=== PATIENT | male | born 1950 | race Caucasian/White ===

== ENCOUNTER → 2019-09-09 | Outpatient (CLI) | payer MEDICARE | LOC: M.ULTRA 07:29 | DX: R93.5 Abnormal findings on diagnostic imaging of other abdominal regions, including retroperitoneum (principal); Z72.0 Tobacco use ==

== ENCOUNTER 2019-12-22 09:48 | Emergency (ER) | payer MEDICARE ==
[~2019-12-22] VITALS: Ht 172.7 cm; Wt 72.6 kg
[2019-12-22] MEDS ORDERED: CARVEDILOL6.25 M1 PO (09:57)
[2019-12-22] MEDS ORDERED: LOSARTAN POTASS50 MG PO (09:57)
[2019-12-22 10:25] LABS: HEMOGLOBIN 17.2 gm/dL (14.0-18.0); MCH 31.2 pg (26.0-34.0); MCHC 34.4 g/dL (28.0-37.0); MCV 90.8 fL (80.0-100.0); MPV 8.3 fl. (7.2-11.1); RBC 5.51 mil/uL (4.50-6.00); RDW-CV 13.9 % (10.5-14.5)
[2019-12-22 10:35] LABS: CALCIUM 8.3 mg/dL (8.5-10.1); CREATININE 0.9 mg/dL (0.6-1.3); POTASSIUM 4.4 mmol/L (3.5-5.1)
[2019-12-22] MEDS ORDERED: COREG12.5 MG PO (11:07)
[2019-12-22] MEDS ORDERED: CARVEDILOL12.5 MG PO (11:12)
[2019-12-22 11:36] VITALS: BP 153/94
== END 2019-12-22 11:36 | disposition home or self-care (01) ==
LOC: M.ERS 09:48
PROVIDERS: Emergency Medicine Emergency Medical Services
DX: I10 Essential (primary) hypertension (principal); Z91.041 Radiographic dye allergy status; Z88.0 Allergy status to penicillin; Z88.2 Allergy status to sulfonamides

== ENCOUNTER 2020-01-27 00:08 | Emergency (ER) | payer MEDICARE ==
[~2020-01-27] VITALS: Ht 170.2 cm; Wt 72.6 kg
[~2020-01-27 00:08] MED LIST: CARVEDILOL12.5 MG PO; CARVEDILOL6.25 M1 PO; COREG12.5 MG PO; LOSARTAN POTASS50 MG PO
[2020-01-27] MEDS ORDERED: ESCITALOPRA5 MG/5 ML PO (00:30)
[2020-01-27 00:42] LABS: HEMATOCRIT 49.4 % (42.0-52.0); HEMOGLOBIN 17.4 gm/dL (14.0-18.0); MCH 31.3 pg (26.0-34.0); MCHC 35.1 g/dL (28.0-37.0); MCV 89.1 fL (80.0-100.0); MPV 8.5 fl. (7.2-11.1); NUCLEATED RBCS 0 /100WBC; PLATELET COUNT* 245 thou/uL (150-400); RBC 5.55 mil/uL (4.50-6.00); RDW-CV 13.9 % (10.5-14.5); WBC 11.5 thou/uL (4.0-11.0)
[2020-01-27 00:49] LABS: CALCIUM 8.3 mg/dL (8.5-10.1); CREATININE 0.9 mg/dL (0.6-1.3); POTASSIUM 3.4 mmol/L (3.5-5.1)
[2020-01-27 00:54] LABS: APTT 27.1 Seconds (25.0-31.3); INR 1.1; PROTIME 10.8 Seconds (9.20-11.50)
[2020-01-27] MEDS ORDERED: XANAX 0.5 MG0.5 MG PO (01:04)
[2020-01-27 01:05] LABS: ALBUMIN 3.8 g/dL (3.4-5.0); MAGNESIUM 1.9 mg/dL (1.8-2.4); TOTAL BILIRUBIN 0.8 mg/dL (<0.1-1.0); TOTAL PROTEIN 7.7 g/dL (6.4-8.2)
[2020-01-27 01:11] VITALS: BP 118/89
[2020-01-27 02:28] LABS: ABSOLUTE BASOPHILS 0.1 thou/uL (0.0-0.2); ABSOLUTE EOSINOPHILS 0.3 thou/uL (0.0-0.7); ABSOLUTE LYMPHOCYTES 2.9 thou/uL (0.8-5.3); ABSOLUTE MONOCYTES 0.7 thou/uL (0.0-1.2); ABSOLUTE NEUTROPHILS 7.5 thou/uL (1.6-8.1)
[2020-01-27 02:29] LABS: PLATELET ESTIMATE ADEQUATE
--- NOTE | 2020-01-27 11:52 | EKG ---
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
== END 2020-01-27 01:30 | disposition home or self-care (01) ==
LOC: M.ERS 00:08
PROVIDERS: Family Medicine
DX: F41.0 Panic disorder [episodic paroxysmal anxiety] (principal); I10 Essential (primary) hypertension

== ENCOUNTER 2020-03-11 15:17 | Emergency (ER) | payer MEDICARE ==
[~2020-03-11] VITALS: Ht 170.2 cm; Wt 72.6 kg
[~2020-03-11 15:17] MED LIST changes: +ESCITALOPRA5 MG/5 ML PO; +XANAX 0.5 MG0.5 MG PO
[2020-03-11 15:44] LABS: ABSOLUTE BASOPHILS 0.1 thou/uL (0.0-0.2); ABSOLUTE EOSINOPHILS 0.2 thou/uL (0.0-0.7); ABSOLUTE LYMPHOCYTES 2.3 thou/uL (0.8-5.3); ABSOLUTE MONOCYTES 0.9 thou/uL (0.0-1.2); ABSOLUTE NEUTROPHILS 7.6 thou/uL (1.6-8.1); BASOPHILS 1.2 %; EOSINOPHILS 1.8 %; HEMATOCRIT 50.5 % (42.0-52.0); HEMOGLOBIN 17.4 gm/dL (14.0-18.0); LYMPHOCYTES 20.4 %; MCH 31.4 pg (26.0-34.0); MCHC 34.4 g/dL (28.0-37.0); MCV 91.3 fL (80.0-100.0); MONOCYTES 8.3 %; MPV 9.1 fl. (7.2-11.1); NUCLEATED RBCS 0 /100WBC; PLATELET COUNT* 210 thou/uL (150-400); POLYS 68.3 %; RBC 5.53 mil/uL (4.50-6.00); RDW-CV 14.2 % (10.5-14.5); WBC 11.1 thou/uL (4.0-11.0)
[2020-03-11 15:55] LABS: CALCIUM 8.6 mg/dL (8.5-10.1); INR 1.1; POTASSIUM 3.6 mmol/L (3.5-5.1); PROTIME 11.1 Seconds (9.20-11.50)
[2020-03-11 16:09] LABS: ALBUMIN 4.3 g/dL (3.4-5.0); CK-MB MASS 3.1 ng/mL (<0.5-3.6); MAGNESIUM 2.1 mg/dL (1.8-2.4); TOTAL BILIRUBIN 0.4 mg/dL (<0.1-1.0); TOTAL PROTEIN 8.8 g/dL (6.4-8.2)
[2020-03-11] MEDS ORDERED: ATIVAN1 M1 PO (18:11)
[2020-03-11 18:20] VITALS: BP 150/85
--- NOTE | 2020-03-12 16:51 | EKG ---
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[place] [facility] 1950 Requested By: Quan Cunningham Order Number: [id number] MD: John Fowler Measurements Intervals [place] Rate: 79 P: 60 VT: 143 QRS: 32 QRSD: 81 T: 50 QT: 366 QTc: 420 Interpretive Statements Sinus rhythm Possible anteroseptal infarct, old Compared to ECG 01/27/2020 00:16:50 Myocardial infarct finding now present Electronically Signed On 03-12-2020 16:50:18 CDT by John Fowler [email or web address] <ELECTRONICALLY SIGNED> By: John Fowler MD, [facility] 03/12/20 1650 1520 1520 John Fowler MD, [facility] /EPI
== END 2020-03-11 18:20 | disposition home or self-care (01) ==
LOC: M.ERS 15:17
PROVIDERS: Emergency Medicine Emergency Medical Services
DX: R42 Dizziness and giddiness (principal); H61.20 Impacted cerumen, unspecified ear; I10 Essential (primary) hypertension; F17.210 Nicotine dependence, cigarettes, uncomplicated; Z88.2 Allergy status to sulfonamides; Z88.0 Allergy status to penicillin; Z88.8 Allergy status to other drugs, medicaments and biological substances

== ENCOUNTER 2020-04-06 16:29 | Observation (INO) | payer MEDICARE ==
[2020-04-06] VITALS (11 sets, daily range): BP systolic 122–198; BP diastolic 81–119
[~2020-04-06] VITALS: Ht 172.7 cm; Wt 67.4 kg
[~2020-04-06 16:29] MED LIST changes: +ATIVAN1 M1 PO
[2020-04-06] MEDS ORDERED: LISINOPRIL20 MG PO (16:37)
[2020-04-06 16:46] LABS: ABSOLUTE BASOPHILS 0.1 thou/uL (0.0-0.2); ABSOLUTE EOSINOPHILS 0.2 thou/uL (0.0-0.7); ABSOLUTE LYMPHOCYTES 2.4 thou/uL (0.8-5.3); ABSOLUTE MONOCYTES 0.5 thou/uL (0.0-1.2); ABSOLUTE NEUTROPHILS 5.3 thou/uL (1.6-8.1); BASOPHILS 1.2 %; EOSINOPHILS 2.4 %; HEMATOCRIT 48.6 % (42.0-52.0); LYMPHOCYTES 28.4 %; MCH 32.5 pg (26.0-34.0); MCV 92.9 fL (80.0-100.0); MONOCYTES 6.1 %; MPV 8.8 fl. (7.2-11.1); NUCLEATED RBCS 0 /100WBC; PLATELET COUNT* 187 thou/uL (150-400); POLYS 61.9 %; RBC 5.23 mil/uL (4.50-6.00); RDW-CV 14.1 % (10.5-14.5); WBC 8.5 thou/uL (4.0-11.0)
[2020-04-06 16:56] LABS: CALCIUM 8.8 mg/dL (8.5-10.1); POTASSIUM 3.6 mmol/L (3.5-5.1)
[2020-04-06 16:59] LABS: APTT 26.4 Seconds (25.0-31.3); INR 1.1; PROTIME 11.4 Seconds (9.20-11.50)
[2020-04-06 17:09] LABS: ALBUMIN 3.9 g/dL (3.4-5.0); CK-MB MASS 2.2 ng/mL (<0.5-3.6); MAGNESIUM 2.1 mg/dL (1.8-2.4); TOTAL BILIRUBIN 0.8 mg/dL (<0.1-1.0); TOTAL PROTEIN 8.1 g/dL (6.4-8.2)
[2020-04-07 00:35] VITALS: BP 132/81
--- NOTE | 2020-04-07 01:43 | NUR ---
ASSUMED CARE OF PT AT 1900. PT IS ALERT AND ORIENTED. VSS. PERRLA. NO COMPLAINTS OF PAIN. PT WAS BEDREST TILL 2300. NO BLEEDING OR BRUISING IN GROIN SITE. PT IS IN SINUS RYTHM ON THE TELEMETRY. PT IS RESTING COMFORTABLY IN BED. RESPIRATIONS ARE EVEN AND NONLABORED. WILL CONTINUE TO MONITOR PT.
[2020-04-07 04:48] VITALS: BP 134/76
[2020-04-07 05:42] LABS: HEMATOCRIT 46.9 % (42.0-52.0); HEMOGLOBIN 16.1 gm/dL (14.0-18.0); MCH 32.1 pg (26.0-34.0); MCHC 34.4 g/dL (28.0-37.0); MCV 93.3 fL (80.0-100.0); MPV 10.1 fl. (7.2-11.1); RBC 5.02 mil/uL (4.50-6.00); RDW-CV 14.1 % (10.5-14.5); WBC 9.6 thou/uL (4.0-11.0)
[2020-04-07 06:00] LABS: CHOLESTEROL 137 mg/dL (<200); HDL CHOLESTEROL 45 mg/dL (>40); LDL CHOLESTEROL 85 mg/dL (<100); TRIGLYCERIDE 37 mg/dL (<150); VLDL 7 mg/dL (<40)
[2020-04-07 06:02] LABS: SERUM ASSESSMENT Clear
[2020-04-07 06:05] LABS: ALBUMIN 3.3 g/dL (3.4-5.0); CALCIUM 8.6 mg/dL (8.5-10.1); CREATININE 0.8 mg/dL (0.6-1.3); POTASSIUM 4.3 mmol/L (3.5-5.1); TOTAL BILIRUBIN 0.9 mg/dL (<0.1-1.0); TOTAL PROTEIN 6.7 g/dL (6.4-8.2)
[2020-04-07 08:30] VITALS: BP 161/82
[2020-04-07] MEDS ORDERED: COREG6.25 MG PO ×2 (09:36→12:48)
[2020-04-07] MEDS ORDERED: ASA81BEC PO (09:36)
[2020-04-07] MEDS ORDERED: EFFIENT10 MG PO ×2 (09:37→12:48)
--- NOTE | 2020-04-07 11:19 | EKG ---
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: DAVIN : 1950 Requested By: Flip Frausto Order Number: [id number] MD: Ramón Croft Measurements Intervals [place] Rate: 87 P: 76 NV: 166 QRS: 59 QRSD: 85 T: 49 QT: 345 QTc: 415 Interpretive Statements Sinus rhythm Probable left atrial enlargement Probable anteroseptal infarct, old Minimal ST depression, lateral leads Compared to ECG 03/11/2020 15:20:59 ST (T wave) deviation now present Myocardial infarct finding still present Electronically Signed On 04-07-2020 11:19:17 CDT by Ramón Croft [email or web address] <ELECTRONICALLY SIGNED> By: Ramón Croft MD, [facility] 04/07/20 1119 1632 1632 Ramón Croft MD, [facility] /EPI
--- NOTE | 2020-04-07 11:24 | EKG ---
[place] [address] ELECTROCARDIOGRAM REPORT Name: RADHAAlbertASHLEYMILDREDBERNA Diggs Room: [address]R.#: [id number] Admission: 04/06/20 Attend Phys: Patel Fernandes, Discharge: Date of : 50 Date of Service: 04/07/20 0823 Report #: [id number] THIS REPORT FOR: //name// [facility] Test Date: 2020-04-07 Test Time: 08:23:12 Pat Name: BERNA WATSON Department: Room: [facility] Gender: M Front Desk Monitor: : 1950 Requested By: Patel Fernandes Order Number: [id number] MD: Ramón Croft Measurements Intervals [place] Rate: 55 P: 48 TN: 155 QRS: 49 QRSD: 79 T: 54 QT: 420 QTc: 402 Interpretive Statements Sinus bradycardia Atrial premature complexes Probable septal infarct, old Compared to ECG 04/06/2020 16:32:50 Atrial premature complex(es) now present ST (T wave) deviation no longer present Myocardial infarct finding still present Electronically Signed On 04-07-2020 11:24:47 CDT by Ramón Croft [email or web address] <ELECTRONICALLY SIGNED> By: Ramón Croft MD, [facility] 04/07/20 1124 2 2 Ramón Croft MD, [facility] /EPI
[2020-04-07 12:25] VITALS: BP 161/82
[2020-04-07] MEDS ORDERED: LIPITOR 40 MG T40 M1 PO (12:48)
[2020-04-07] MEDS ORDERED: ASPIR 8181 MG PO (12:48)
[2020-04-07] MEDS ORDERED: NITROGLYCERIN0.4 MG SUBLING (12:56)
--- NOTE | 2020-04-08 11:17 | CARD ---
[address] [address] CARDIAC CATH REPORT Name: BERNA WATSON Room: [address] Sabrina Hernandez#: [id number] Admission: 04/06/20 Attend Phys: Patel Fernandes MD Discharge: 04/07/20 Date of : 50 Report #: [id number] THIS REPORT FOR: //name// cc: Francois Miles Adam J DO ~ APPROVED REPORT Study performed: 04/06/2020 16:56:25 Patient Details Patient Status: ED Room #: The patient is a 70 year-old male Event Personnel Francois Carrizales RTR Monitor, Kathleen Pedroza RN RN, Jasmin Pickering RN RN, Elza Torrez RTR Scrub, Patel Fernandes Order Dispatcher, John Fowler Steam Generating Powerplant Mechanic Procedures Performed Left Heart Cath w/or w/o Coronaries [id number] [facility] CELESTE Place w/wo Plasty Single RCA [id number] Hemostasis w/ Mynx Indication Unstable angina Risk Factors Family History, Hypercholesterolemia Admission/Lab Medications/Medications given during procedure Solumedrol IV 125 mg, Lidocaine Subcut 20 ml, Benadryl IV 50 mg, Angiomax IV 10.5 ml, Angiomax IV 4.75 ml per hr, Effient PO 60 mg Procedure Narrative The patient was brought urgently to the Cardiac Catheterization Laboratory and was prepped and draped in a sterile manner. The right femoral was infiltrated with 2% Lidocaine subcutaneous anesthesia. A [place] 6 FR sheath was inserted into the right femoral artery. Coronary angiography was performed using coronary diagnostic catheters. The right coronary system was accessed and visualized with a Diagnostic JR4 6Fr catheter. The left coronary system was accessed and visualized with a Diagnostic JL4 6Fr catheter. The left ventricle was accessed and visualized with a Diagnostic Pigtail Straight 6Fr catheter. Left ventricular/[place] [address] CARDIAC CATH REPORT Name: BERNA WATSON Room: [address]#: [id number] Admission: 04/06/20 Attend Phys: Patel Fernandes MD Discharge: 04/07/20 Date of : 50 Report #: [id number] catheter pullback. Pre-demployment femoral angiogram was performed . Closure device was deployed with a 6 Fr Mynx. The patient tolerated the procedure well and there were no complications associated with the procedure. There was no hematoma. Intraoperative Conscious Sedation Sedation start time: 1724 Case end Time: 1806 No sedation given Fluoro Time: 8.6 minutes Dose: DAP 45817 cGycm2 1271.70 mGy Contrast Type and Amount: Visipaque 240 ml Coronary Angiography The patient's coronary anatomy is right dominant. Diagnostic Cath Left Main 0% narrowing LAD 30% mid LAD narrowing Circumflex 0% narrowing Right Coronary Dominant vessel with 40% proximal and 75 - 80% mid right coronary artery stenosis Left Ventriculography The left ventricle is normal in size with normal contractility. The left ventricular ejection fraction is estimated to be 65%. Left ventricular wall motion abnormalities are not present. There is no mitral insufficiency. Hemodynamics The aortic pressure is 191/90 mmHg with a mean of 62 mmHg. The left ventricular pressure is 193/10 mmHg with a mean of mmHg. The left ventricular end diastolic pressure is 31 mmHg. There was no gradient across the aortic valve upon pullback. PCI Technique Lesion Patient was preloaded with Angiomax IV 10.5 ml. Percutaneous coronary intervention was performed on the mid right coronary artery. The lesion stenosis prior to intervention was 75-80% with DONNA 3 flow. A 6FR JCR 4 100CM Guide Catheter was used to engage the Right ostium. A BMW 190cm Interventional Guidewire was used to cross the lesion. BALLOON DILATION A Balloon catheter Trek RX 2.5 X 12 was inserted and inflated up to 12.00atm [place] 10[place]. [place] [address] CARDIAC CATH REPORT Name: BERNA WATSON Room: [address] Sabrina M.R.#: [id number] Admission: 04/06/20 Attend Phys: Patel Fernandes MD Discharge: 04/07/20 Date of : 50 Report #: [id number] STENT DEPLOYMENT A drug-eluting stent Junior RX Stent 2.32O55ph was inserted and inflated up to 12.00atm for 10seconds. Additional Inflation: 16.00atm for 11seconds. Additional Inflation: 18.00atm for 10seconds. Additional Inflation: 20 christina for 10 seconds. Final angiography reveals 0 % stenosis with DONNA 3 flow. Conclusion 1. Coronary artery disease characterized by the following: A 30% narrowing in the midportion of a prominent LAD system B dominant right coronary artery with 40% proximal and 75 - 80% mid vessel stenosis 2. Normal left ventricular systolic function, estimated ejection fraction being 65% 3. Moderately severe systemic systolic hypertension with significant elevation of left ventricular end systolic pressure at rest 4. Successful PCI with deployment of drug-eluting stent at the site of 75 - 80% mid right coronary stenosis with 0% residual narrowing and DONNA-3 flow to the distal vessel Recommendations Cardiac Risk Reduction Program Medications Administered Aspirin (any) Prasugrel Diagnostic Cath Approved by: Patel Fernandes MD Date/Time: 04/08/2020 11:15:38 <ELECTRONICALLY SIGNED> By: John Fowler MD, [facility] 04/08/20 1116 1116 1116John Fowler MD, FACC /INF
--- NOTE | 2020-04-09 08:41 | H ---
[place] [address] HISTORY AND PHYSICAL Name: BERNA WATSON Room: [address] Mary#: [id number] Admission: 04/06/20 Attend Phys: Patel Fernandes MD Discharge: 04/07/20 Date of : 50 Report #: [id number] THIS REPORT FOR: //name// cc: Francois Miles Adam J DO THIS REPORT FOR: //name// CC: Francois Lawson DATE OF SERVICE: 04/06/2020 INDICATION: Acute coronary syndrome. HISTORY OF PRESENT ILLNESS: The patient is a very pleasant 70-year-old gentleman with no prior cardiac history. He presented to the Emergency Room 2 weeks ago with some midsternal chest pain. At that time, there was no EKG evidence of ischemia. Enzymes are unremarkable. He presents again now with recurrent midsternal chest discomfort radiating to the back. EKG shows diffuse ST segment depression. Initial cardiac enzymes are pending. Cardiac risk factors include hypertension and tobacco use. He denies any history of diabetes or dyslipidemia. PAST MEDICAL HISTORY: Hypertension. HOME MEDICATIONS: Losartan 50 mg b.i.d. ALLERGIES: IODINE, PENICILLINS AND SULFA. FAMILY HISTORY: Noncontributory. SOCIAL HISTORY: The patient smokes 3-4 cigarettes daily. Denies use of alcohol. REVIEW OF SYSTEMS: GENERAL: He denies fevers or chills. He has no acute visual changes. He denies congestion or headache. He denies any significant shortness of breath, dyspnea or orthopnea. He reports chest pain as outlined above. He reports palpitations. He denies nausea or vomiting. He denies hematemesis or melena. He has no dysuria, hematuria, or frequency. He does have some nocturia. He has some joint pain, but no other myalgias. He denies any significant TIA or CVA like symptoms. He is without other cardiac complaint. PHYSICAL EXAMINATION: VITAL SIGNS: Blood pressure 159/83, pulse is 78 [place] [address] HISTORY AND PHYSICAL Name: BERNA WATSON Room: [address] Th[place].#: [id number] Admission: 04/06/20 Attend Phys: Patel Fernandes MD Discharge: 04/07/20 Date of : 50 Report #: [id number] GENERAL: This is a pleasant gentleman who appears to be in no significant distress. HEENT: Extraocular muscles intact. Mucous membranes are moist. NECK: Shows no jugular venous distention. There are no carotid bruits. CHEST: Reveals clear lung rizzo without wheezes or rales. CARDIOVASCULAR: Reveals a regular rhythm with normal S1 and S2. I do not appreciate gallop or murmur. ABDOMEN: Reveals normal bowel sounds. The abdomen is soft, nontender. EXTREMITIES: Shows no edema. SKIN: Warm and dry. LABORATORY DATA: Evaluated. Coags are within normal limits. D-dimer minimally elevated at 1.45. Sodium 138, potassium 3.6, chloride 100, bicarbonate 34, BUN 9, creatinine 1.0. Serum glucose 128. LFTs are pending. EGFR 74. White blood cell count 8.5, hemoglobin 17.0, platelet count 187,000. IMPRESSION AND RECOMMENDATIONS: 1. Acute coronary syndrome consistent with non-ST elevation myocardial infarction. Enzymes pending. We will proceed with coronary angiography and possible intervention. Further medication adjustments pending results of that study. 2. Hypertension. Blood pressure mildly elevated at this time. We will make further adjustments post-cardiac catheterization. 3. Possible dyslipidemia. We will check fasting lipid profile. 4. Tobacco use. We will encourage cessation. <ELECTRONICALLY SIGNED> By: Patel Fernandes MD, FACC 04/09/20 0841 1709 1729Patel Fernandes MD, FACC /nt
--- NOTE | 2020-04-09 08:41 | D ---
[address] [address] DISCHARGE SUMMARY Name: BERNA WATSON Room: [address] Sabrina Hernandez#: [id number] Admission: 04/06/20 Attend Phys: Patel Fernandes MD Discharge: 04/07/20 Date of : 50 Report #: [id number] THIS REPORT FOR: //name// cc: Francois Miles Adam J DO THIS REPORT FOR: //name// CC: Francois Lawson DATE OF SERVICE: 04/06/2020 DISCHARGE DIAGNOSES: 1. Non-ST elevation myocardial infarction. 2. Unstable angina. 3. Coronary artery disease. 4. Hypertension. 5. Dyslipidemia. PROCEDURES DURING THE HOSPITALIZATION: 1. Left heart catheterization. 2. Coronary angiography. 3. Left ventriculography. 4. Percutaneous coronary intervention to the mid right coronary artery. HOSPITAL COURSE: The patient was admitted to the Emergency Room yesterday with progressive chest discomfort and EKG changes suggesting unstable angina/non-ST elevation myocardial infarction. The patient was brought to the catheterization lab urgently. Catheterization revealed a high-grade mid right coronary artery stenosis with some lucency to suggest thrombus. A single drug-eluting stent was placed without complication. The patient tolerated the procedure well without complication. The patient had moderate nonocclusive plaques otherwise. He had normal LV systolic function. The patient's peak troponin was 0.3. He was stable overnight and being discharged uneventfully the following day. DISCHARGE MEDICATIONS: Will include aspirin 81 mg daily, Effient 10 mg daily, atorvastatin 40 mg daily, carvedilol 6.25 mg b.i.d. and Nitrostat sublingual p.r.n. DISPOSITION: The patient will follow up with nurse practitioner in Cardiology in 4 weeks. <ELECTRONICALLY SIGNED> By: Patel Fernandes MD, [facility] 04/09/20 0841 1301 [id number] Fernand[facility] MD, FACC /nt
== END 2020-04-07 13:49 | disposition home or self-care (01) ==
LOC: M.ERS 16:29 → M.CL 16:29 → M.ERS 17:03 → M.TBA-ER 17:14 → M.2W 18:48
PROVIDERS: Family Medicine; ADMIT Internal Medicine Cardiovascular Disease; ATTEND Internal Medicine Cardiovascular Disease
DX: I25.110 Atherosclerotic heart disease of native coronary artery with unstable angina pectoris (principal); I21.4 Non-ST elevation (NSTEMI) myocardial infarction; E03.9 Hypothyroidism, unspecified; I10 Essential (primary) hypertension

== ENCOUNTER 2020-04-08 01:45 | Observation (INO) | payer MEDICARE ==
[~2020-04-08] VITALS: Ht 170.2 cm; Wt 69.3 kg
[2020-04-08] VITALS (7 sets, daily range): BP systolic 128–207; BP diastolic 80–106
[~2020-04-08 01:45] MED LIST changes: +ASA81BEC PO; +ASPIR 8181 MG PO; +COREG6.25 MG PO; +EFFIENT10 MG PO; +LIPITOR 40 MG T40 M1 PO; +LISINOPRIL20 MG PO; +NITROGLYCERIN0.4 MG SUBLING
[2020-04-08 02:28] LABS: ABSOLUTE BASOPHILS 0.1 thou/uL (0.0-0.2); ABSOLUTE EOSINOPHILS 0.1 thou/uL (0.0-0.7); ABSOLUTE LYMPHOCYTES 2.7 thou/uL (0.8-5.3); ABSOLUTE MONOCYTES 0.7 thou/uL (0.0-1.2); ABSOLUTE NEUTROPHILS 8.7 thou/uL (1.6-8.1); BASOPHILS 0.5 %; EOSINOPHILS 0.8 %; HEMATOCRIT 46.6 % (42.0-52.0); HEMOGLOBIN 15.9 gm/dL (14.0-18.0); MCH 31.8 pg (26.0-34.0); MCHC 34.2 g/dL (28.0-37.0); MPV 8.9 fl. (7.2-11.1); NUCLEATED RBCS 0 /100WBC; PLATELET COUNT* 172 thou/uL (150-400); POLYS 70.7 %; RBC 5.01 mil/uL (4.50-6.00); WBC 12.3 thou/uL (4.0-11.0)
[2020-04-08 02:35] LABS: CALCIUM 8.3 mg/dL (8.5-10.1); CREATININE 1.1 mg/dL (0.6-1.3); POTASSIUM 3.6 mmol/L (3.5-5.1)
[2020-04-08 02:45] LABS: ALBUMIN 3.9 g/dL (3.4-5.0); TOTAL BILIRUBIN 0.6 mg/dL (<0.1-1.0); TOTAL PROTEIN 7.6 g/dL (6.4-8.2)
--- NOTE | 2020-04-08 03:57 | NUR ---
PT BEING ADMITTED TO ROOM 206. REPORT GIVEN TO ELIZABETH SEVILLA.
--- NOTE | 2020-04-08 05:11 | NUR ---
PT ADMIT TO ROOM 206. ALERT ORIENTED. PAIN IN LEFT EYE 2/10 DOWN FROM 10/10 IN ED. TELEMETRY SHOWS SR. PT STATES HE FEELS DIZZY. BED ALARM ON. FALL PRECAUTIONS IN PLACE. PT INSTRUCTED TO CALL FOR NURSE WHEN NEEDING TO GET OOB. CALL SOTELO WITHIN REACH. PT NPO FOR CARDIOLOGY CONSULT.
[2020-04-08 09:53] LABS: CHOLESTEROL 121 mg/dL (<200); HDL CHOLESTEROL 40 mg/dL (>40); LDL CHOLESTEROL 69 mg/dL (<100); TRIGLYCERIDE 62 mg/dL (<150); VLDL 12 mg/dL (<40)
[2020-04-08 09:54] LABS: SERUM ASSESSMENT Clear
--- NOTE | 2020-04-08 12:21 | 2DMMODE ---
[place] [address] 2 D/M-MODE ECHOCARDIOGRAM Name: BERNA WATSON Room: [address] Mary#: [id number] Admission: 04/08/20 Attend Phys: Valentino Whipple, Discharge: Date of : 50 Date of Service: 04/08/20 1220 Report #: [id number] THIS REPORT FOR: cc: Francois Miles Adam J DO Liston, Michael J. MD [facility] ~ APPROVED REPORT Study performed: 04/08/2020 09:51:50 EXAM: Comprehensive 2D, Doppler, and color-flow Echocardiogram Patient Location: In-Patient Room #: [facility] Status: routine BSA: 1.80 HR: 69 bpm BP: 128/80 mmHg Rhythm: NSR Other Information Study Quality: Good Indications Acute UT 2D Dimensions IVSd: 11.56 (7-11mm) LVOT Diam: 21.76 (18-24mm) LVDd: 44.71 mm PWd: 10.30 (7-11mm) Ascending Ao: 32.45 (22-36mm) LVDs: 26.64 (25-40mm) Aortic Root: 37.76 mm Volumes Left Atrial Volume (Systole) LA ESV Index: 15.80 mL/m2 Aortic Valve AoV Peak Bhargav.: 0.83 m/s AO Peak Gr.: 2.74 mmHg LVOT Max P.24 mmHg AO Mean Gr.: 1.49 mmHg LVOT Mean P.71 mmHg LVOT Max V: 0.56 m/s AO V2 VTI: 16.84 cm LVOT Mean V: 0.40 m/s LEFTY (VTI): 2.93 cm2 LVOT V1 VTI: 13.27 [place] [address] 2 D/M-MODE ECHOCARDIOGRAM Name: BERNA WATSON Room: [address] M.R.#: [id number] Admission: 04/08/20 Attend Phys: Valentino Whipple, Discharge: Date of : 50 Date of Service: 04/08/20 1220 Report #: [id number] Mitral Valve E/A Ratio: 1.41 MV Decel. Time: 163.68 ms MV E Max Bhargav.: 0.57 m/s MV PHT: 47.47 ms MVA (PHT): 4.63 cm2 TDI E/Lateral E': 5.18 E/Medial E': 5.70 Medial E' Bhargav.: 0.10 m/s Lateral E' Bhargav.: 0.11 m/s Pulmonary Valve PV Peak Bhargav.: 0.75 m/s PV Peak Gr.: 2.22 mmHg Left Ventricle The left ventricle is normal size. There is normal LV segmental wall motion. There is normal left ventricular wall thickness. Left ventricular systolic function is normal. LVEF is 55-60%. The left ventricular diastolic function is normal. Right Ventricle The right ventricle is normal size. The right ventricular systolic function is normal. Atria The left atrium size is normal. The right atrium size is normal. Aortic Valve The aortic valve is normal in structure. No aortic regurgitation is present. There is no aortic valvular stenosis. Mitral Valve The mitral valve is normal in structure. Trace mitral regurgitation. No evidence of mitral valve stenosis. Tricuspid Valve The tricuspid valve is normal in structure. Unable to assess PA pressure. Trace tricuspid regurgitation. Pulmonic Valve The pulmonary valve is normal in structure. There is no pulmonic valvular reg[place]itation[place] [address] 2 D/M-MODE ECHOCARDIOGRAM Name: BERNA WATSON Room: [address] M.R.#: [id number] Admission: 04/08/20 Attend Phys: Valentino Whipple, Discharge: Date of : 50 Date of Service: 04/08/20 1220 Report #: [id number] The aortic root is normal in size. IVC is normal in size and collapses >50% with inspiration. Pericardium There is no pericardial effusion. <Conclusion> The left ventricle is normal size. There is normal left ventricular wall thickness. Left ventricular systolic function is normal. LVEF is 55-60%. The left ventricular diastolic function is normal. Trace mitral regurgitation. Trace tricuspid regurgitation. IVC is normal in size and collapses >50% with inspiration. <ELECTRONICALLY SIGNED> By: Patel Fernandes MD, FACC 04/08/20 1220 1220 1220 Patel Fernandes MD, FACC /INF
--- NOTE | 2020-04-08 12:43 | EKG ---
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: FERNANDO : 1950 Requested By: Quan Cunningham Order Number: [id number] MD: John Fowler Measurements Intervals [place] Rate: 69 P: 62 AK: 153 QRS: 66 QRSD: 80 T: 35 QT: 370 QTc: 397 Interpretive Statements Sinus rhythm Baseline wander in lead(s) V2 Compared to ECG 04/07/2020 08:23:12 Sinus bradycardia no longer present Atrial premature complex(es) no longer present Myocardial infarct finding no longer present Electronically Signed On 04-08-2020 12:43:01 CDT by John Fowler [email or web address] <ELECTRONICALLY SIGNED> By: John Fowler MD, [facility] 04/08/20 1243 4 John Fowler MD, [facility] /EPI
--- NOTE | 2020-04-08 15:50 | NUR ---
DENIES CHEST PAIN OR HEADACHE. ECHO DONE, LVEF 55-60%. OKAY TO DISCHARGE FROM CARDIOLOGY. DISCHARGE EDUCATION GIVEN. PT LEFT THE UNIT AT 1545.
[2020-04-09 02:06] LABS: GLYCOHEMOGLOBIN (HGB A1C) 5.5 % (4.8-5.6)
--- NOTE | 2020-04-09 08:41 | CON ---
[address] [address] CONSULTATION Name: BERNA WATSON Room: [address] Sabrina Hernandez#: [id number] Admission: 04/08/20 Attend Phys: Valentino Whiplpe MD Discharge: 04/08/20 Date of : 50 Report #: [id number] THIS REPORT FOR: //name// cc: Francois Miles Adam J DO ~ THIS REPORT FOR: //name// CC: Francois Miles DO Valentino Whipple DATE OF SERVICE: 04/08/2020 INDICATION: Headache post-percutaneous coronary intervention with mildly elevated troponin. HISTORY OF PRESENT ILLNESS: The patient is a very pleasant 70-year-old gentleman who was seen earlier this week with midsternal chest discomfort and EKG changes to suggest acute ischemia. His troponin at that time was minimally elevated at 0.3. The patient went to the cardiac catheterization lab and was found to have a significant stenoses in the mid right coronary artery for which he had a drug-eluting stent placed. The patient had moderate nonocclusive disease otherwise. Ejection fraction at that time was felt to be relatively normal. The patient was discharged uneventfully. He returned to the hospital early this morning with focal headache behind the left eye. The patient was noted to have a troponin of 0.5 and was brought into the hospital for further evaluation. At the time of my interview, the patient's headache has resolved. He is feeling well. He denies chest pain or shortness of breath. He is without other complaint. PAST MEDICAL HISTORY: Significant for coronary artery disease as outlined above and hypertension. The patient has mild dyslipidemia for which he takes medication. HOME MEDICATIONS: Effient 10 mg daily, aspirin 81 mg daily, atorvastatin 40 mg daily, Nitrostat sublingual p.r.n., carvedilol 6.25 mg b.i.d. FAMILY HISTORY: Positive for coronary artery disease. The patient's brother recently with complications of coronary artery disease. ALLERGIES: IODINE, PENICILLIN AND SULFA. SOCIAL HISTORY: The patient had been smoking 3-4 cigarettes daily. He denies use of alcohol. REVIEW OF SYSTEMS: A 14-point review of systems as per HPI, [place] [address] CONSULTATION Name: BERNA WATSON [address] [id number] Admission: 04/08/20 Attend Phys: Valentino Whipple MD Discharge: 04/08/20 Date of : 50 Report #: [id number] unremarkable. PHYSICAL EXAMINATION: VITAL SIGNS: Stable. Blood pressure 128/80, pulse 62 and regular. GENERAL: This is a very pleasant gentleman in no distress. Mood and affect appropriate. HEENT: Extraocular muscles are intact. Mucous membranes are moist. NECK: Shows no jugular venous distention. There are no carotid bruits. CHEST: Reveals clear lung rizzo without wheezes, rales or rhonchi. CARDIOVASCULAR: Reveals a regular rhythm without gallop or murmur. ABDOMEN: Reveals normal bowel sounds. The abdomen is soft, nontender. EXTREMITIES: Shows no edema. Peripheral pulses are 2+ and easily palpable. SKIN: Dry. IMAGING: A 12-lead EKG shows sinus rhythm with no significant ST or T-wave abnormalities. LABORATORY DATA: Reviewed, significant for troponin of 0.5. IMPRESSION AND RECOMMENDATIONS: 1. Coronary artery disease, presently stable. I am repeating an echocardiogram to evaluate left ventricular systolic function. I believe his minimally elevated troponins are likely related to his recent intervention and not acute coronary syndrome. If his echocardiogram appears stable, he would be okay for discharge from a cardiac standpoint. 2. Hypertension. Blood pressure adequately controlled with current medications. Continue home regimen as outlined above. 3. Dyslipidemia. Continue atorvastatin 40 mg daily with a goal LDL of 70 or less. 4. Focal headache, resolved. No further evaluation at this time. <ELECTRONICALLY SIGNED> By: Patel Fernandes MD, FACC 04/09/20 0841 0938 0950Patel Fernandes MD, FACC /nt
== END 2020-04-08 15:56 | disposition home or self-care (01) ==
LOC: M.ERS 01:45 → M.TBA-ER 03:11 → M.2W 03:45
PROVIDERS: Emergency Medicine Emergency Medical Services; Family Medicine; ADMIT Internal Medicine; ATTEND Internal Medicine
DX: I16.0 Hypertensive urgency (principal); I25.10 Atherosclerotic heart disease of native coronary artery without angina pectoris; R79.89 Other specified abnormal findings of blood chemistry; E78.5 Hyperlipidemia, unspecified; R51 Headache; R94.6 Abnormal results of thyroid function studies; D72.0 Genetic anomalies of leukocytes; F17.210 Nicotine dependence, cigarettes, uncomplicated

== ENCOUNTER 2020-05-01 11:55 | Emergency (ER) | payer MEDICARE ==
[~2020-05-01] VITALS: Ht 170.2 cm; Wt 69.4 kg
[2020-05-01] MEDS ORDERED: LISINOPRIL2.5 MG PO (12:22)
[2020-05-01] MEDS ORDERED: KEFLEX500 M1 PO (14:45)
[2020-05-01 15:00] VITALS: BP 175/100
--- NOTE | 2020-05-03 15:18 | EKG ---
[place] [address] ELECTROCARDIOGRAM REPORT Name: ALEXIAMILDREDBERNA Diggs Room: [facility]#: [id number] Admission: 05/01/20 Attend Phys: Discharge: 05/01/20 Date of : 50 Date of Service: 05/01/20 1208 Report #: [id number] THIS REPORT FOR: //name// [facility] ED Test Date: 2020-05-01 Test Time: 12:08:56 Pat Name: BERNA WATSON Department: Room: Gender: Media Coordinator: [facility] : 1950 Requested By: Zoe Canchola Order Number: [id number] Sandra MD: Ramón Croft Measurements Intervals [place] Rate: 64 P: 54 DC: 159 QRS: 65 QRSD: 78 T: 34 QT: 396 QTc: 409 Interpretive Statements Sinus rhythm Compared to ECG 04/08/2020 02:05:39 No significant changes Electronically Signed On 05-03-2020 15:18:24 CDT by Ramón Croft [email or web address] <ELECTRONICALLY SIGNED> By: Ramón Croft MD, [facility] 05/03/20 1518 1208 1208 Ramón Croft MD, [facility] /EPI
== END 2020-05-01 15:00 | disposition home or self-care (01) ==
LOC: M.ERS 11:55
DX: K04.7 Periapical abscess without sinus (principal); R42 Dizziness and giddiness; I10 Essential (primary) hypertension; I25.10 Atherosclerotic heart disease of native coronary artery without angina pectoris; Z95.5 Presence of coronary angioplasty implant and graft; Z88.0 Allergy status to penicillin; Z88.2 Allergy status to sulfonamides; Z88.8 Allergy status to other drugs, medicaments and biological substances

== ENCOUNTER → 2020-06-01 | Outpatient (CLI) | payer MEDICARE ==
[~2020-06-01] MED LIST changes: +KEFLEX500 M1 PO; +LISINOPRIL2.5 MG PO
--- NOTE | 2020-06-24 08:38 | PAINCON ---
[address] [address] PAIN MANAGEMENT CONSULTATION Name: RADHAAlbertBERNA LIM Room: [facility] Mary#: [id number] Admission: 06/01/20 Attend Phys: Wilfrido Chow MD Discharge: Date of : 50 Report #: [id number] THIS REPORT FOR: //name// cc: Francois Miles Adam J DO Rosie THIS REPORT FOR: //name// CC: Francois Mendez DATE OF SERVICE: 06/01/2020 CHIEF COMPLAINT: Neck pain. HISTORY: The patient is a 70-year-old gentleman who has been experiencing pain and discomfort, which has been problematic since 2019. He notes that there is pain in the back of his neck as well as his head. He has been to the Emergency Room because of neck pain. He states that thi feels like sandpaper when he is moving his head from one side to the next. Has pain in the posterior portion of his head that radiates from the top of his head into the area near his eyebrow. He has noticed extreme pain for about the last 7 months. Described as a constant pulling type of discomfort. He has been evaluated with an MRI, CT and ultrasound. No significant pathology was found. He has been using Tylenol, but has not found that has been very successful in helping with his pain and discomfort. Rates his pain as a 7-8/10. He feels that most activities of daily living exacerbate his discomfort. He is concerned because he had a brother who had problems and as a result of cardiac problems. He is also still distressed from his 's a few years ago from stage 4 lung cancer. The pain has been very nervous and extremely anxious. ALLERGIES: IV DYES; PENICILLIN; SULFA; ZITHROMAX; LEVOFLOXACIN; MONTELUKAST; NABUMETONE; HYDROCHLOROTHIAZIDE, HYPONATREMIA; LOSARTAN, NECK PAIN. CURRENT MEDICATIONS: Effient 10 mg, Lipitor 40 mg, Coreg 6.25 mg, aspirin 81 mg, nitroglycerin 0.4 mg sublingual, lisinopril 2.5 mg. PAST MEDICAL HISTORY: Hypertension, coronary artery disease, status post cardiac catheterization and stent placement in 04/19/2020, vertigo, muscle cramping, tinea versicolor, anxiety. SOCIAL HISTORY: He is retired. REVIEW OF SYSTEMS: As per HPI. LABORATORY DATA: No new values are available at this time[place] [address] PAIN MANAGEMENT CONSULTATION Name: BERNA WATSON Room: [facility]#: [id number] Admission: 06/01/20 Attend Phys: Wilfrido Chow MD Discharge: Date of : 50 Report #: [id number] that he had ultrasound as well as CT and MRI of his head and neck. PAIN CLINIC ASSESSMENT AND PQRS: 1. Height 5 feet 8 inches, weight 150 pounds, BMI is 22.9. 2. Vital signs: Blood pressure is 143/105, second blood pressure 192/117. 3. Heart rate 86, respiratory rate 16, room air saturation is 96%, temperature 98.4. The patient states that he is extremely nervous and this is the reason for his elevated blood pressure. 4. Pain intensity 7/10. 5. Fall history: The patient has not fallen in the last 3 months. 6. Blood thinner. The patient is taking prasugrel. 7. Hypertension. The patient is being treated for hypertension. 8. Fall history: The patient has not fallen in the last 3 months. 9. Opioid medications in the last 6 weeks. The patient is not on chronic opioid medication. 10. Opioid use. The patient low for opioid use. 11. Alcohol. The patient denies frequent use of alcoholic beverages: The patient does smoke cigarettes. PHYSICAL EXAMINATION: GENERAL: The patient is a well-developed, well-nourished white male. Appears his stated age. He is alert and oriented x 3. His affect is appropriate. The patient does appear nervous. HEENT: Normocephalic, atraumatic. Extraocular eye muscles intact. Sclerae nonicteric. Mucous membranes are moist. The patient does complain of some pain and discomfort in the left as well as the right occipital area. Palpation in these areas do cause some increased pain and discomfort. Palpation in this area does cause some of the pain and discomfort in the lateral temporal area and some discomfort near the patient's eye. MUSCULOSKELETAL: The patient complains of pain and discomfort and some sensation of a sand gritty type activity with left and right rotation of his neck and some discomfort with cervical extension and flexion. HEART: Regular rate. ABDOMEN: Nontender. LUNGS: Clear. The patient is wearing a facial covering. IMPRESSION: Clinical findings consistent with occipital neuralgia. RECOMMENDATIONS: The patient is experiencing bilateral occipital neuralgia. Risks and benefits of an injection in the occipital area for occipital neuralgia were discussed. Possible complications of the procedure, which could include infection, worsening of pain, no improvement in pain, nerve damage were discussed. The patient elects to proceed. PROCEDURE NOTE: The patient was taken to the procedure area. He was then assisted in getting on the examination table. A pillow was placed under his [address] [place] [address] PAIN MANAGEMENT CONSULTATION Name: SHIRLEYBERNA Room: [facility]#: [id number] Admission: 06/01/20 Attend Phys: Wilfrido Chow MD Discharge: Date of : 50 Report #: [id number] shoulders to improve positioning. The left and right occipital area were sterilely prepped with a chlorhexidine solution and allowed to dry. A total of 5 mL of 0.25% bupivacaine and 40 mg triamcinolone was used to identify the left occipital area. Aspiration was negative. The patient stated that this did reproduce his pain and discomfort. A total of 5 mL of 0.25% bupivacaine and 40 mg triamcinolone was injected in the right greater occipital nerve area and a similar treatment was performed on the left occipital area. This area had been sterilely prepped. The occipital area was identified. A 25-gauge needle was then advanced near the occipital nerve. Aspiration was negative. A total of 5 mL of 0.25% bupivacaine and 40 mg triamcinolone was injected. The patient tolerated the procedure well. He remained in the pain clinic for an appropriate amount of time. His pain level decreased to 3 at the time of discharge. He will follow up in the future as needed. We would like to thank you for letting us participate in his care. <ELECTRONICALLY SIGNED> By: Wilfrido Chow MD 06/24/20 0838 [id number]. MD roxanna Hickey
== END | disposition home or self-care (01) ==
LOC: M.PC 11:46
PROVIDERS: ATTEND Anesthesiology Pain Medicine
DX: M54.81 Occipital neuralgia (principal); I10 Essential (primary) hypertension; I25.10 Atherosclerotic heart disease of native coronary artery without angina pectoris; I25.2 Old myocardial infarction; F41.9 Anxiety disorder, unspecified; Z98.890 Other specified postprocedural states; Z79.899 Other long term (current) drug therapy; Z79.82 Long term (current) use of aspirin; Z88.0 Allergy status to penicillin; Z88.2 Allergy status to sulfonamides; Z88.8 Allergy status to other drugs, medicaments and biological substances

== ENCOUNTER → 2020-06-08 | Outpatient (CLI) | payer MEDICARE | LOC: M.LAB 06-02 15:40 | PROVIDERS: ATTEND Internal Medicine Cardiovascular Disease | DX: I10 Essential (primary) hypertension (principal) ==